=== PATIENT | male | born 1950 | race Caucasian/White ===

== ENCOUNTER → 2017-01-14 | Outpatient (CLI) | payer MEDICARE, BC | END | disposition home or self-care (01) | LOC: GMAJ 10:27 | PROVIDERS: ATTEND Family Medicine | DX: I10 Essential (primary) hypertension (principal); Z12.5 Encounter for screening for malignant neoplasm of prostate; R53.82 Chronic fatigue, unspecified; E55.9 Vitamin D deficiency, unspecified | CPT/HCPCS: 82306; 84443; G0103 ==

== ENCOUNTER → 2017-07-29 | Outpatient (CLI) | payer BC, MEDICARE | END | disposition home or self-care (01) | LOC: GMAL 10:27 | PROVIDERS: ATTEND Family Medicine | DX: D51.3 Other dietary vitamin B12 deficiency anemia (principal); E55.9 Vitamin D deficiency, unspecified ==

== ENCOUNTER → 2018-02-25 | Outpatient (CLI) | payer BC, MEDICARE | LOC: GMAL 11:04 | PROVIDERS: ATTEND Family Medicine | DX: Z12.5 Encounter for screening for malignant neoplasm of prostate (principal); R53.82 Chronic fatigue, unspecified; E55.9 Vitamin D deficiency, unspecified | CPT/HCPCS: 82306; 84443; G0103 ==

== ENCOUNTER 2018-04-13 20:56 | Emergency (ER) | payer BC, MEDICARE ==
--- NOTE | 2018-04-13 21:06 | ED.PDOC ---
History of Present Illness - General Stated Complaint: RECTAL BLEEDING Time Seen by Provider: 04/13/18 21:03 Source: patient, RN notes reviewed Exam Limitations: no limitations Additional Information: 67 YEAR OLD WHITE MALE PRESENTS WITH RECTAL BLEEDING HE HAS FELT A DISCOMFORT AND SOMETHING IN THE ANAL CANAL WHAT HE THOUGHT WAS A HEMORROID HE HAS NOT HAD A COLONOSCOPY IN 30 YEARS HE HAS NO WEIGHT LOSS NO CHANGE IN BOWEL HABITS HE HAS NO ABDOMINAL PAIN NO FAMILY HISTORY OF COLON MALIGNANCY - History of Present Illness Timing/Duration: 1/2 hour Severity: moderate Improving Factors: nothing Worsening Factors: nothing Associated Symptoms: denies symptoms Allergies/Adverse Reactions: Allergies NO KNOWN ALLERGY Allergy (Verified 04/13/18 21:15) Home Medications: Ambulatory Orders Amlodipine Besylate [Amlodipine Besylate] 04/13/18 Hydrocortisone 25 mg Supp [Anusol-HC Suppository] 1 ea SC Q12HRS 15 Days sup Lisinopril [Lisinopril] 04/13/18 metFORMIN HCL [Glucophage] 04/13/18 Review of Systems - Review of Systems Constitutional: States: no symptoms reported EENTM: States: no symptoms reported Respiratory: States: no symptoms reported Cardiology: States: no symptoms reported Gastrointestinal/Abdominal: States: see HPI Genitourinary: States: no symptoms reported Neurological: States: no symptoms reported Endocrine: States: no symptoms reported Hematologic/Lymphatic: States: no symptoms reported Family Medical History - Family History Father Family History: Unknown Physical Exam - Physical Exam General Appearance: Alert, Comfortable Eye Exam: bilateral normal Ears, Nose, Throat: hearing grossly normal, normal ENT inspection, normal pharynx Neck: non-tender, full range of motion, supple Cardiovascular/Chest: normal peripheral pulses, regular rate, rhythm, no edema Peripheral Pulses: radial,right: 2+, radial,left: 2+, femoral,right: 2+, femoral ,left: 2+ Gastrointestinal/Abdominal: normal bowel sounds, non tender, soft, no organomegaly, no pulsatile mass Back Exam: normal inspection, no CVA tenderness, no vertebral tenderness Extremity: normal range of motion, non-tender, normal inspection 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, no motor/sensory deficits, alert, normal mood/affect Progress - Progress Progress: 04/13/18 22:16 PT WAS ADVISED SYMPTOMATIC TREATMENT AT THIS TIME WITH TUCKS PADS ICE AND ANUSOL HC FOLLOW UP WITH PCP AND GASTROENTEROLGIST IF SYMPTOMS PERSISTS HE WAS ADVISED TO HAVE A COLONOSCOPY DONE BECAUSE OF HIS AGE - Results/Orders Results/Orders: RECTAL EXAM THROMBOSED HEMORROID AT 9 O CLOCK POSITION NO ACTIVE BLEEDING AT THIS TIME IT IS RATHER PAINFUL TO DO AN INTERNAL DIGITAL EXAM AT THIS TIME Laboratory Tests 04/13/18 04/13/18 04/13/18 21:15 21:15 21:15 WBC 6.5 RBC 4.49 L Hgb 15.2 Hct 43.1 MCV 95.9 H MCH 33.8 H MCHC 35.2 RDW 12.7 Plt Count 158 MPV 9.4 Absolute Neuts (auto) 3.60 Absolute Lymphs (auto) 1.90 Absolute Monos (auto) 0.60 Absolute Eos (auto) 0.30 Absolute Basos (auto) 0.00 Neutrophils % 56.2 Lymphocytes % 29.5 Monocytes % 9.5 H Eosinophils % 4.0 Basophils % 0.8 PT 10.9 INR 0.940 PTT (SP) 33.2 Sodium 138 Potassium 3.8 Chloride 99 L Carbon Dioxide 29 Anion Gap 13.8 BUN 15 Creatinine 1.02 BUN/Creatinine Ratio 14.7 Random Glucose 106 H Serum Osmolality 276.9 Calcium 9.7 Total Bilirubin 0.8 AST 30 ALT 19 Alkaline Phosphatase 81 Serum Total Protein 8.4 H Albumin 4.5 Globulin 3.9 H Albumin/Globulin Ratio 1.2 Departure - Departure Clinical Impression: Rectal bleeding, External hemorrhoid, thrombosed Time of Disposition: 22:20 Disposition: Discharge to Home or Self Care Condition: Good Diet: resume usual diet Referrals: Shawn Curran III, MD [Primary Care Provider] - 1-2 Weeks Prescriptions: Hydrocortisone 25 mg Supp [Anusol-HC Suppository] 1 ea SC Q12HRS 15 Days sup Home Medications: Ambulatory Orders Amlodipine Besylate [Amlodipine Besylate] 04/13/18 Hydrocortisone 25 mg Supp [Anusol-HC Suppository] 1 ea SC Q12HRS 15 Days sup Lisinopril [Lisinopril] 04/13/18 metFORMIN HCL [Glucophage] 04/13/18 Comments: GET OTC MOM 30CC PO Q HS TUCKS PADS
[2018-04-13 21:09] VITALS: TEMP 97.5
[2018-04-13 21:51] VITALS: O2SAT 97
[2018-04-13 22:30] VITALS: BP 162/82
== END 2018-04-13 22:29 | disposition home or self-care (01) ==
LOC: ER 20:56
DX: K64.5 Perianal venous thrombosis (principal)

== ENCOUNTER 2018-08-16 07:16 | Emergency (ER) | payer BC, MEDICARE ==
[2018-08-16] MEDS ORDERED: COLCHICINE 0.6 MG TAB PO ONE ×2 (07:36→07:38)
[2018-08-16] MEDS ORDERED: KETOROLAC TROMETHAMINE INJ 60 MG/2 ML VIAL IM ONE (07:37)
[2018-08-16] MEDS ORDERED: HYDROcodone 10MG/APAP 325MG 1 EA TAB PO ONE (07:37)
--- NOTE | 2018-08-16 07:41 | ED.PDOC ---
History of Present Illness - General Chief Complaint: Upper Extremity Injury Stated Complaint: left arm pain Time Seen by Provider: 08/16/18 07:35 Source: patient Exam Limitations: no limitations - History of Present Illness Initial Comments: PT REPORTS 2 DAY HISTORY OF PROGRESSIVELY WORSENING LEFT WRIST PAIN. PT REPORTS THAT PAIN BEGAN SHORTLY AFTER CARRYING A HEAVY LOAD OF LAUNDRY. PT REPORTS SIMILAR PAIN IN THE WRIST SEVERAL TIMES IN THE PAST SECONDARY TO TENDINITIS AND GOUT. PT DENIES, FEVER OR CHILLS. Pain - Upper Extremity: severe: Wrist, left Improving Factors: cold therapy, immobilization Worsening Factors: movement Allergies/Adverse Reactions: Allergies NO KNOWN ALLERGY Allergy (Verified 04/13/18 21:15) Home Medications: Ambulatory Orders Amlodipine Besylate [Amlodipine Besylate] 04/13/18 Hydrocortisone 25 mg Supp [Anusol-HC Suppository] 1 ea NE Q12HRS 15 Days sup Lisinopril [Lisinopril] 04/13/18 metFORMIN HCL [Glucophage] 04/13/18 Acetaminophen W/ Codeine [Tylenol W/ CODEINE #3] 1 ea PO Q4HR PRN #24 08/16/18 Ibuprofen 800 mg PO Q8HR PRN #30 tab 08/16/18 Review of Systems - Review of Systems Constitutional: Denies: chills, fever Respiratory: Denies: cough, short of breath Gastrointestinal/Abdominal: Denies: diarrhea, nausea, vomiting Musculoskeletal: States: see HPI, joint pain, joint swelling Past Medical History (General) - Patient Medical History Hx Stroke: No Hx Hypertension: Yes Hx Diabetes: Yes Hx MRSA: No Surgical History: no surgical history - Vaccination History Hx Pneumococcal Vaccination: Yes Family Medical History - Family History Father Family History: Unknown Physical Exam - Physical Exam General Appearance: Alert, No apparent distress, Well Developed, Well Groomed, Well Hydrated Eyes, Ears, Nose, Throat Exam: normal ENT inspection Neck: normal inspection Cardiovascular/Respiratory: no respiratory distress Back Exam: normal inspection Shoulder Exam: normal inspection, non-tender, no evidence of injury Elbow/Forearm Exam: normal inspection, non-tender, no evidence of injury Wrist Exam: pain, soft tissue tenderness, swelling Hand Exam: normal inspection, non-tender, no evidence of injury Neuro/Tendon: normal sensation, normal motor functions, normal tendon functions Mental Status: alert, oriented x 3 Skin Exam: normal color, warm/dry Progress - Progress Progress: 08/16/18 09:19 PT REPORTS SIGNIFICANT IMPROVEMENT IN PAIN AFTER TORADOL AND NORCO. DIAGNOSTIC STUDIES DISCUSSED. Departure - Departure Clinical Impression: Wrist pain, acute, History of acute gouty arthritis Time of Disposition: :20 Disposition: Discharge to Home or Self Care Condition: Fair Departure Forms: ED Discharge - Pt. Copy, Patient Portal Self Enrollment Instructions: Gout (DC) Diet: resume usual diet Referrals: Shawn Curran III, MD [Primary Care Provider] - 1-5 Days Prescriptions: Acetaminophen W/ Codeine [Tylenol W/ CODEINE #3] 1 ea PO Q4HR PRN #24 PRN Reason: Pain Ibuprofen 800 mg PO Q8HR PRN #30 tab PRN Reason: Pain Home Medications: Ambulatory Orders Amlodipine Besylate [Amlodipine Besylate] 04/13/18 Hydrocortisone 25 mg Supp [Anusol-HC Suppository] 1 ea NE Q12HRS 15 Days sup Lisinopril [Lisinopril] 04/13/18 metFORMIN HCL [Glucophage] 04/13/18 Acetaminophen W/ Codeine [Tylenol W/ CODEINE #3] 1 ea PO Q4HR PRN #24 08/16/18 Ibuprofen 800 mg PO Q8HR PRN #30 tab 08/16/18
--- NOTE | 2018-08-16 08:01 | RAD ---
EXAM DESCRIPTION: Wrist,Left 2 Views CLINICAL HISTORY: 68 years Male, l wrist pain, swelling COMPARISON: None. FINDINGS: Mild first CMC joint osteoarthrosis. Vascular calcifications noted. No fracture or dislocation. Mild dorsal soft tissue swelling. IMPRESSION: No acute osseous abnormality. Mild dorsal soft tissue swelling. Electronically signed by: Ludin Parker MD 08/16/2018 7:59 AM CDT
[2018-08-16 08:52] VITALS: TEMP 97.3
[2018-08-16 09:44] VITALS: BP 181/93; O2SAT 96
== END 2018-08-16 09:44 | disposition home or self-care (01) ==
LOC: ER 07:16
DX: M25.532 Pain in left wrist (principal); M10.9 Gout, unspecified; I10 Essential (primary) hypertension; E11.9 Type 2 diabetes mellitus without complications; Z79.84 Long term (current) use of oral hypoglycemic drugs; Z79.899 Other long term (current) drug therapy
CPT/HCPCS: 73100; J1885

== ENCOUNTER → 2018-08-25 | Outpatient (CLI) | payer BC, MEDICARE | LOC: GMAL 15:00 | PROVIDERS: ATTEND Family Medicine | DX: M10.9 Gout, unspecified (principal) ==

== ENCOUNTER → 2019-02-22 | Outpatient (CLI) | payer BC, MEDICARE | LOC: GMAL 11:33 | PROVIDERS: ATTEND Family Medicine | DX: M10.9 Gout, unspecified (principal) ==

== ENCOUNTER → 2019-08-25 | Outpatient (CLI) | payer BC, MEDICARE | LOC: GMAL 10:21 | PROVIDERS: ATTEND Family Medicine | DX: D51.3 Other dietary vitamin B12 deficiency anemia (principal); R53.82 Chronic fatigue, unspecified; E55.9 Vitamin D deficiency, unspecified; Z12.5 Encounter for screening for malignant neoplasm of prostate ==

== ENCOUNTER → 2020-09-14 | Outpatient (CLI) | payer BC, MEDICARE | LOC: GMAL 12:05 | PROVIDERS: ATTEND Family Medicine | DX: E11.9 Type 2 diabetes mellitus without complications (principal); I10 Essential (primary) hypertension; E78.49 Other hyperlipidemia ==